=== PATIENT | female | born 1990 | race Caucasian/White ===

== ENCOUNTER 2017-07-20 22:05 | Observation (INO) | payer MEDICAID ==
[~2017-07-20] VITALS: Ht 154.9 cm; Wt 68.9 kg
[2017-07-20] MEDS ORDERED: FERR325T6 PO (23:59)
[2017-07-20] MEDS ORDERED: PNV1TABL76 MT (23:59)
== END 2017-07-21 02:00 | disposition home or self-care (01) ==
LOC: L&D 22:05
PROVIDERS: ADMIT Obstetrics & Gynecology; ATTEND Obstetrics & Gynecology
DX: O26.893 Other specified pregnancy related conditions, third trimester (principal); R10.30 Lower abdominal pain, unspecified; M54.9 Dorsalgia, unspecified; V89.2XXA Person injured in unspecified motor-vehicle accident, traffic, initial encounter; Y93.89 Activity, other specified; Y92.488 Other paved roadways as the place of occurrence of the external cause; Y99.8 Other external cause status; Z3A.30 30 weeks gestation of pregnancy
CPT/HCPCS: 76805; 76818; 99281; G0378